=== PATIENT | female | born 1985 | race Native Hawaiian/Other Pacific Islander ===

== ENCOUNTER 2020-02-29 00:59 | Emergency (ER) | payer OTHER ==
[~2020-02-29] VITALS: Ht 167.6 cm; Wt 90.7 kg
[2020-02-29 01:47] LABS: PLATELET COUNT 245 K/uL (152-353)
[2020-02-29 01:53] LABS: POTASSIUM 3.7 mmol/L (3.6-5.2)
[2020-02-29 02:25] VITALS: BP 106/54; TEMP 98.4
== END 2020-02-29 02:27 | disposition home or self-care (01) ==
LOC: ED 00:59
PROVIDERS: Hospitalist
DX: R10.84 Generalized abdominal pain (principal); M54.89 Other dorsalgia; N23 Unspecified renal colic; N20.0 Calculus of kidney
CPT/HCPCS: 36415; 80053; 81000; 81025; 82150; 83690; 85027; 87088; 96360; 96375; 99284; J1885; J2405